=== PATIENT | male | born 1955 | race Caucasian/White ===

== ENCOUNTER 2017-04-24 13:25 | Emergency (ER) | payer OTHER ==
[2017-04-24 13:42] VITALS: BP 121/69; BMI 32.5
[2017-04-24] MEDS ORDERED: ZOFRAN INJ 4 MG VIAL IM ONE (14:37)
[2017-04-24] MEDS ORDERED: DILAUDID INJ IM ONE (14:37)
--- NOTE | 2017-04-24 14:37 | DR.GENAD ---
HPI - PCP Primary Care Physician: APPLY - HPI Comment HPI Comment: HISTORY BELOW. - Complaint/Symptoms Chief Complaint Doctors Comments: LEFT SHOULDER INJURY AND PAIN SUSTAIN BEGINING OF THE WEEK AND REINJURED IT AGAIN YESTERDAY. SEVERE PAIN. Chief Complaint:: patient fell on his left shoulder the first of the week and it has not got any better. he is wearing a shoulder sling from home. - Nurses notes reviewed Nurses Notes Review: Yes - Source History Provided: Patient - Mode of Arrival Mode of Arrival: Ambulatory - Timing Onset of Chief Complaint: 04/18/17 Came on: Suddenly - Duration Duration: Constant Duration: Days - Severity Severity: Moderate PMH - PMH Past Medical History: Yes Past Medical History: Alzheimers, Arthritis, COPD, Diabetes, GERD, Hypertension , Sleep Apnea Past Surgical History: Yes Surgical History: Cholecystectomy, Ortho Surgery - Family History History of Family Medical Conditions: No - Social History Does patient currently use any type of tobacco product: Yes Have you used tobacco products in the last 12 months: Yes Type of Tobacco Use: Cigarettes How many years tobacco product used: 40 Does any household member use tobacco: No Alcohol Use: None Do you use any recreational Drugs:: No Lives With: Family Lives Where: Home - infectious screening In the last 2 months have you had wt loss of >10#?: NO Have you had fever, night sweats or hemotysis?: No Have you traveled outside the country in the last 6 months?: No Isolation: Standard ROS - Review of Systems Constitutional: No Symptoms Reported Eyes: No Symptoms Reported ENTM: No Symptoms Reported Respiratoy: No Symptoms Reported Cardiovascular: No Symptoms Reported Gastrointestinal/Abdominal: No Symptoms Reported Genitourinary: No Symptoms Reported Neurological: No Symptoms Reported Musculoskeletal: Back Pain, Muscle Pain Integumentary: No Symptoms Reported, Change in Color, Bruises Hematologic/Lymphatic: No Symptoms Reported Endocrine: No Symptoms Reported All Other Systems: Reviewed and Negative PE - Vital Signs Vitals: Temperature 98.9 F Pulse Rate 72 Respiratory Rate 18 Blood Pressure 121/69 O2 Sat by Pulse Oximetry 100 - General Limitations: No Limitations General Appearance: Alert - Head Head Exam: Normal Inspection - Eyes Eye exam: Normal Appearance - ENT ENT Exam: Normal External Ear Exam External Ear Exam: Normal External Inspection TM/Canal Exam: Bilateral Normal Nose Exam: Normal Nose Exam Mouth Exam: Normal Inspection Throat Exam: Normal Inspection - Neck Neck Exam: Normal Inspection - Chest Chest Inspection: Normal Inspection - Respiratory Respiratory Exam: Normal Lung Sounds Bilat Respiratory Exam: Bilateral Rhonchi, Lower Rhonchi - Cardiovascular Cardiovascular Exam: Regular Rate, Normal Rhythm, Normal Heart Sounds - Abdominal Exam Abdominal Exam: Normal Bowel Sounds, Soft. negative: Distention - Extremities Extremities Exam: Normal Inspection - Back Back Exam: Normal Inspection - Neurologic Neurological Exam: Alert, Oriented X3 - Psychiatric Psychiatric Exam: Anxious - Skin Skin Exam: Intact MDM - Additional Information Additional Information Obtained From: Family - Differential Diagnosis Differential Diagnosis: LEFT SHOULDER FRACTURE, SPRAIN, STRAIN Course - Treatment Treatment: SEE ORDERS. PAIN IMPROVED WITH MEDS IN ED. - Education/Counseling Education/Counseling: Patient, Family, Education Educated On: Treatment, Diagnosis, Needs for Follow Up ROR - XRAY XRAY Interpreted by: Radiologist XRAY Findings: REPORT DISCUSS WITH PATIENT. - Diagnosis Discharge Problem: Shoulder sprain Qualifiers: Encounter type: initial encounter Shoulder sprain type: unspecified sprain Laterality: left Qualified Code(s): S43.402A - Unspecified sprain of left shoulder joint, initial encounter - Discharge Plan Disposition: 01 HOME, SELF-CARE Condition: Stable Prescriptions: Oxycodone HCl/Acetaminophen [Percocet 5-325 mg Tablet] 1 each PO Q6H PRN #15 tablet PRN Reason: - Follow ups/Referrals Follow ups/Referrals: MARIA ESTHER HUMMEL [Primary Care Provider] - 2 days - Instructions Instructions: Shoulder Sprain Additional Instructions: RETURN TO ED IF WORSE.
[2017-04-24] MEDS ORDERED: ZOFRAN INJ 4 MG VIAL ONE (14:40)
[2017-04-24] MEDS ORDERED: DILAUDID INJ ONE (14:40)
[2017-04-24] MEDS ORDERED: DECADRON INJ IM ONE (15:37)
[2017-04-24] MEDS ORDERED: DECADRON INJ ONE (15:41)
--- NOTE | 2017-04-24 15:51 | RAD ---
HISTORY: Left shoulder pain status post fall Study: Four views left shoulder Comparison: June 17, 2015 Findings: The patient has undergone previous distal clavicle resection with narrowing of the subacromial space and secondary DJD. Mild glenohumeral DJD is noted. There are no destructive osseous lesions. No acu te cortical disruption or dislocation can be identified. The visualized portions of the scapula are unremarkable. There is left upper lobe pleural thickening versus consolidation/atelectasis for which a dedicated PA and lateral examination is recommended. CT chest with contrast may ultimately be andrey anted as well pending radiographic findings. IMPRESSION: No acute bony radiographic abnormality. Chronic changes as above. Incidental left apical pleural thic kening versus consolidation for which a dedicated PA and lateral exam is recommended. Reported By:
--- NOTE | 2017-04-24 16:19 | RAD ---
Chest, three views Indication: Fall Comparison: June 17, 2015 Findings: There is stable cardiomegaly without congestive failure. No focal consolidation, effusion o r pneumothorax is identified. No acute osseous abnormality is seen. Impression: No acute chest process. Reported By:
== END 2017-04-24 16:45 | disposition home or self-care (01) ==
LOC: ER 13:44
DX: S43.402A Unspecified sprain of left shoulder joint, initial encounter (principal); W19.XXXA Unspecified fall, initial encounter; Y92.9 Unspecified place or not applicable
CPT/HCPCS: 71020; 73030; 96372; 99282; 99283; J1100; J1170; J2405

== ENCOUNTER → 2017-06-23 | Outpatient (CLI) | payer OTHER ==
--- NOTE | 2017-06-23 16:20 | MRI ---
MRI left elbow without contrast Indication: Left elbow pain after pulling injury Comparison: None Technique: Multiplanar multi sequence MR images of the left elbow were obtained without contrast. Findings: The marrow signal and bony alignment are normal, without evidence for acute fracture or dis location. The joint spaces are grossly maintained, without evidence for high-grade chondrosis. There is no joint effusion. There is mild irregularity and edema of the common flexor tendon and adjacent proximal flexor-pronato r mass. There is mildly increased signal within the common extensor tendon adjacent to its proximal a ttachment, suggestive for tendinosis. The extensor muscles demonstrate normal signal and morphology. There is mild edema within the anconeus muscle. The biceps, brachialis, and triceps tendons are inta ct. The ulnar collateral, lateral ulnar collateral, and radial collateral ligaments are grossly intac t. Mild edema adjacent to the ulnar nerve as it crosses posterior to the medial epicondyle is likely reactive, related to the common flexor pathology. The cubital tunnel and ulnar nerve are otherwise un remarkable. Impression: 1. Partial tear of the common flexor tendon and proximal flexor-pronator muscle mass. 2. Mild common extensor tendinosis 3. Anconeus muscle edema, suggesting low-grade strain. Reported By:
== END ==
LOC: RAD 13:26
PROVIDERS: ATTEND Specialist
DX: M25.522 Pain in left elbow (principal)
CPT/HCPCS: 73221

== ENCOUNTER → 2017-08-26 | Outpatient (CLI) | payer OTHER ==
--- NOTE | 2017-08-26 12:28 | MRI ---
STUDY: MRI OF THE LUMBAR SPINE HISTORY: Lumbar post laminectomy syndrome. Low back pain that radiates into hips. Comparison: None. Technique: Multiplanar multi-sequence MRI of the lumbar spine was performed. Sagittal T1, sagittal T 2, and STIR images, axial T1, and axial T2 images were obtained. Findings: Sagittal images: Vertebral body heights are within normal limits. There is grade 1 anterolisthesis of L4 on L5. There are bilateral defects in the pars interarticularis at L4. There postsurgical changes from apparent bi lateral L4/5 laminotomies. Granulation tissue at the operative site is again noted. There is some per sistent T2 hyperintensity involving granulation tissue on the left greater than right at the L4/5 lev el. The conus medullaris is normal in appearance terminating at the level of L1. Axial images: T12 -- L1: There is a broad-based disc bulge with central annular tear. There is bilateral facet arth ropathy and ligamentum flavum infolding. The central canal and neural foramina are adequate. L1 -- L2: There is no significant disc bulge. There is bilateral facet arthropathy and ligamentum fla vum infolding. The central canal neural foramina are adequate. L2 -- L3: There is a broad-based disc bulge, bilateral facet arthropathy and ligamentum flavum infold ing. The central canal and neural foramina are adequate. L3 -- L4: There is a broad-based disc bulge, bilateral facet arthropathy and ligamentum flavum infold ing. The combination of these findings results in mild central canal stenosis. The neural foramina ar e adequate. L4 -- L5: There is a broad-based disc bulge with annular tear. There is bilateral facet arthropathy. In combination with grade 1 anterolisthesis of L4 on L5, these findings results in mild spinal stenos is. There is severe bilateral neural foraminal stenosis at this level. L5 -- S1: There is a central disc bulge and bilateral facet arthropathy. The central canal and neural foramina are adequate. IMPRESSION: 1. Multilevel lumbar spondylosis with grade 1 anterolisthesis of L4/5. 2. Mild spinal stenosis at L3/4 and L4/5. 3. Postsurgical change status post bilateral laminotomies at L4/5. There is granulation tissue at the operative site that maintains persistent T2 hyperintensity. This is most consistent with persistent edema. 4. Severe neural foraminal stenosis at L4/5 bilaterally. Reported By:
== END | disposition home or self-care (01) | DRG 552 ==
LOC: RAD 10:32
PROVIDERS: ATTEND Specialist
DX: M96.1 Postlaminectomy syndrome, not elsewhere classified (principal); M47.896 Other spondylosis, lumbar region; M48.061 Spinal stenosis, lumbar region without neurogenic claudication
CPT/HCPCS: 72148